=== PATIENT | male | born 1950 | race Caucasian/White ===

== ENCOUNTER → 2022-07-31 | Outpatient (CLI) | payer MEDICARE, SELFPAY ==
--- NOTE | 2022-07-31 10:38 | VDLE_ITS ---
Reason For Study: Pain RIGHT LEFT CFV is compressible, spontaneous, phasic, GSV is normal. competent and demonstrates normal CFV is compressible, spontaneous, phasic, augmentation. competent, and demonstrates normal Procedure augmentation. This is a venous duplex using B-mode, color FV is compressible, spontaneous, phasic, flow and spectral Doppler. competent and demonstrates normal Exam performed in department. augmentation. A preliminary report was called and/or faxed POP V is compressible, spontaneous, phasic, to PCP: [facility]. competent and demonstrates normal augmentation. T/P Trunk is compressible. PTV is compressible. LT PerV is compressible. Acute deep vein thrombosis is noted in the SoleusV. It is dilated and NONCOMPRESSIBLE. VL/Venous Duplex US, Unilateral Interpretation Summary Deep venous thrombosis left soleus vein. Patent and compressible left great saphenous vein Normal flow patterns right common femoral vein Ordering Physician: Mo Parsons Referring Physician: Skyler Diaz Performed By: Jimena Herrera RVT
== END | disposition home or self-care (01) ==
PROVIDERS: PCP Family Medicine; Visit Provider Orthopaedic Surgery
DX: M79.662 Pain in left lower leg (principal)
CPT/HCPCS: 93971

== ENCOUNTER 2024-04-22 15:06 | Emergency (ER) | payer MEDICARE, SELFPAY ==
[2024-04-22 15:07] VITALS: BP 146/97; PULSE 75; RESP 16; TEMP 36.6; O2SAT 98; BMI 30.1
--- NOTE | 2024-04-22 17:51 | ED.RN ---
PT. LEFT BEFORE SEEING A PROVIDER W/ . REGISTRATION NOTIFIED AT THIS TIME
== END 2024-04-22 17:51 | disposition left against medical advice (07) ==
LOC: ED 17:56
PROVIDERS: PCP Family Medicine
DX: Z53.21 Procedure and treatment not carried out due to patient leaving prior to being seen by health care provider (principal)